=== PATIENT | male | born 1990 ===

== ENCOUNTER 2016-12-03 18:48 | Emergency (ER) | payer SELFPAY ==
[~2016-12-03] VITALS: Ht 180.3 cm; Wt 113.0 kg
[2016-12-03 18:50] VITALS: Ht 180.3 cm; Wt 113.0 kg
== END 2016-12-03 19:00 | disposition left against medical advice (07) ==
LOC: FTE 18:48
DX: Z53.21 Procedure and treatment not carried out due to patient leaving prior to being seen by health care provider (principal)